=== PATIENT | female | born 1990 | race American Indian/Alaskan Native ===

== ENCOUNTER 2017-03-25 11:15 | Emergency (ER) | payer OTHER ==
[2017-03-25] MEDS ORDERED: Lidocaine 1% 20 ML MDV ONE (11:38)
[2017-03-25] MEDS ORDERED: Lidocaine 1% 20 ML MDV INJECT ONE (11:39)
--- NOTE | 2017-03-25 11:39 | EDM.PDOC ---
ED HPI GENERAL MEDICAL PROBLEM - General Chief Complaint: Laceration Stated Complaint: L INDEX FINGER CUT Time Seen by Provider: 03/25/17 11:22 - History of Present Illness INITIAL COMMENTS - FREE TEXT/NARRATIVE: HISTORY AND PHYSICAL: History of present illness: Past 26-year-old female presents with concern of a laceration of the second digit of her left hand that occurred with a knife while working. She denies up- to-date tetanus Review of systems: As per history of present illness and below otherwise all systems reviewed and negative. Past medical history: As per history of present illness and as reviewed below otherwise noncontributory. Surgical history: As per history of present illness and as reviewed below otherwise noncontributory. Social history: No reported history of drug or alcohol abuse. Family history: As per history of present illness and as reviewed below otherwise noncontributory. Physical exam: HEENT: Atraumatic, normocephalic, pupils reactive, negative for conjunctival pallor or scleral icterus, mucous membranes moist, throat clear, neck supple, nontender, trachea midline. Lungs: Clear to auscultation, breath sounds equal bilaterally, chest nontender. Heart: S1S2, regular, negative for clicks, rubs, or JVD. Abdomen: Soft, nondistended, nontender. Negative for masses or hepatosplenomegaly. Negative for costovertebral tenderness. Pelvis: Stable nontender. Genitourinary: Deferred. Rectal: Deferred. Extremities: Flap type laceration approximately 2 cm volar aspect second digit left hand Neuro: Awake, alert, oriented. Cranial nerves II through XII unremarkable. Cerebellum unremarkable. Motor and sensory unremarkable throughout. Exam nonfocal. Diagnostics: None Therapeutics: Tetanus updated patient elasticized 1% lidocaine without epinephrine irrigated with copious amount 0.9 normal saline and closed with 5-0 nylon interrupted suture bacitracin applied Impression: [#1 acute injury left hand ( laceration second digit) Definitive disposition and diagnosis as appropriate pending reevaluation and review of above. ED ROS GENERAL - Review of Systems Review Of Systems: ROS reveals no pertinent complaints other than HPI. ED EXAM, SKIN/RASH Exam: See Below (See dictation) Departure - Departure Time of Disposition: 11:38 Disposition: Home, Self-Care 01 Condition: Good Clinical Impression: Hand injury - Discharge Information Referrals: PCP,None [Primary Care Provider] - Additional Instructions: The following information is given to patients seen in the emergency department who are being discharged to home. This information is to outline your options for follow-up care. We provide all patients seen in our emergency department with a follow-up referral. The need for follow-up, as well as the timing and circumstances, are variable depending upon the specifics of your emergency department visit. If you don't have a primary care physician on staff, we will provide you with a referral. We always advise you to contact your personal physician following an emergency department visit to inform them of the circumstance of the visit and for follow-up with them and/or the need for any referrals to a consulting specialist. The emergency department will also refer you to a specialist when appropriate. This referral assures that you have the opportunity for followup care with a specialist. All of these measure are taken in an effort to provide you with optimal care, which includes your followup. Under all circumstances we always encourage you to contact your private physician who remains a resource for coordinating your care. When calling for followup care, please make the office aware that this follow-up is from your recent emergency room visit. If for any reason you are refused follow-up, please contact the [facility] emergency department at and asked to speak to the emergency department charge nurse. ERNIE [facility] [address] [place] [id number] Wound check 48 hour suture removal 10-14 days return as needed as discussed
[2017-03-25] MEDS ORDERED: Diphtheria,Pertussis(Acell),Tetanus Vaccine 0.5 ML Syringe IM ONE (11:40)
== END 2017-03-25 12:11 | disposition home or self-care (01) ==
LOC: MW.ED 11:15
DX: S61.211A Laceration without foreign body of left index finger without damage to nail, initial encounter (principal); Z23 Encounter for immunization; W26.0XXA Contact with knife, initial encounter
CPT/HCPCS: 12001; 90471; 90715; 99282; 99282-25

== ENCOUNTER 2018-11-02 08:10 | Inpatient (IN) | payer OTHER ==
[2018-11-02] MEDS ORDERED: Lidocaine 1% 50 ML MDV INJECT PRN (10:01)
[2018-11-02] MEDS ORDERED: Misoprostol 200 MCG Tab PO PRN (10:01)
[2018-11-02] MEDS ORDERED: Sodium Chloride 0.9% 10 ML SDV IV PRN (10:01)
[2018-11-02] MEDS ORDERED: Methylergonovine 0.2 MG/1 ML Amp IM PRN (10:01)
[2018-11-02] MEDS ORDERED: Butorphanol 1 MG/ML SDV IVPUSH PRN (10:01)
[2018-11-02] MEDS ORDERED: Nalbuphine 10 MG/1 ML Vial IVPUSH PRN (10:01)
[2018-11-02] MEDS ORDERED: Sodium Chloride 0.9% 2.5 ML Syringe FLUSH PRN (10:01)
[2018-11-02] MEDS ORDERED: Water For Irrigation,Sterile 1,000 ML Container IRR PRN (10:01)
[2018-11-02] MEDS ORDERED: Sodium Chloride 0.9% 10 ML Syringe FLUSH PRN (10:01)
[2018-11-02] MEDS ORDERED: Carboprost Tromethamine 250 MCG/1 ML Amp IM PRN (10:01)
[2018-11-02] MEDS ORDERED: Tranexamic Acid 1,000 MG in Sodium Chloride 0.9% 100 ML IV PRN (10:01)
[2018-11-02] MEDS ORDERED: Lactated Ringers 1,000 ML IV SCH (10:15)
[2018-11-02 10:59] LABS: BLOOD UREA NITROGEN,BUN 9 mg/dL (7.0-18.0); CARBON DIOXIDE,CO2 19.3 mmol/L (21.0-32.0); CHLORIDE,CL 105 mmol/L (98-107); GLUCOSE RANDOM 91 mg/dL (74-106); SODIUM,NA 138 mmol/L (136-145)
[2018-11-02] MEDS ORDERED: Ropivacaine HCl/PF 100 ML ONE (18:07)
[2018-11-02] MEDS ORDERED: fentaNYL 100 MCG/2 ML SDV ONE (18:07)
[2018-11-02] MEDS: Oxytocin/0.9 % Sodium Chloride 30 UNIT/500 ML BAG IV SCH ×2 (19:15→19:37)
[2018-11-02] MEDS ORDERED: Lidocaine 1% 50 ML MDV ONE (19:19)
[2018-11-02] MEDS ORDERED: Witch Hazel Medicated Pads 40/Jar TOP PRN (20:12)
[2018-11-02] MEDS ORDERED: Acetaminophen 500 MG Tab PO PRN ×2 (20:12)
[2018-11-02] MEDS ORDERED: Lanolin 100% Cream 7 GM Tube TOP PRN (20:12)
[2018-11-02] MEDS ORDERED: Bisacodyl 10 MG Supp RECTAL PRN (20:12)
[2018-11-02] MEDS ORDERED: Ibuprofen 400 MG Tab PO PRN (20:12)
[2018-11-02] MEDS ORDERED: Docusate Sodium 100 MG Cap PO PRN (20:12)
[2018-11-02] MEDS ORDERED: Benzocaine/Menthol 20%-0.5% Spray 78 GM Cannister TOP PRN (20:12)
[2018-11-02] MEDS: Ibuprofen 800 MG Tab PO PRN (20:53)
--- NOTE | 2018-11-03 03:36 | OR ---
SURGEON: Renard Gutiérrez MD DATE OF PROCEDURE: 11/02/2018 INDICATION: The patient is a 27-year-old, G1, P0 at 39 weeks 5 days, presented in spontaneous labor. The patient progressed to 10/100/+1 and pushed with contractions. PREOPERATIVE DIAGNOSES: 1. Intrauterine at 39 weeks 5 days. 2. Active 2nd stage of labor. POSTOPERATIVE DIAGNOSES: 1. Intrauterine at 39 weeks 5 days. 2. Active 2nd stage of labor. FINDINGS: Male fetus in cephalic presentation. AGPAR 8 and 9. ANESTHESIA: Local anesthesia. ESTIMATED BLOOD LOSS: 350 mL. OPERATIVE PROCEDURE: Normal spontaneous vaginal delivery. DESCRIPTION OF PROCEDURE: Patient pushed with contractions for approximately 30 minutes with descent to 10/100/+3. head delivered over intact perineum in occiput anterior position. No nuchal cord was noted. head restituted ROT. Anterior shoulder delivered easily, followed by posterior shoulder and the remaining body. The baby was crying and pink immediately after delivery and moving all extremities. Baby was placed on maternal chest. Cord was clamped and cut after 60 seconds and no longer pulsating. Cord gases were obtained. Placenta was delivered with gentle traction. Second-degree perineal laceration was noticed. Lidocaine 1% was injected for local anesthesia. 3-0 Vicryl was used to repair the 2nd- degree laceration in the usual fashion. Fundus was firm and at the umbilicus. Bleeding was minimal. The patient tolerated the procedure well, was given care instructions. COOPER / RAUL /[id number] SHANAE
--- NOTE | 2018-11-03 15:52 | PCM.PNPP ---
- General Info Date of Service: 11/03/18 Functional Status: Reports: Pain Controlled, Tolerating Diet, Ambulating, Urinating - Review of Systems General: Reports: No Symptoms HEENT: Reports: No Symptoms Pulmonary: Reports: No Symptoms Cardiovascular: Reports: No Symptoms Gastrointestinal: Reports: No Symptoms Genitourinary: Reports: No Symptoms Musculoskeletal: Reports: No Symptoms Skin: Reports: No Symptoms Neurological: Reports: No Symptoms Psychiatric: Reports: No Symptoms - General Info Date of Service: 11/03/18 - Patient Data Vital Signs - Most Recent: Last Vital Signs Temp 36.9 C 11/03/18 07:55 Pulse 97 11/03/18 07:55 Resp 17 11/03/18 07:55 BP 122/58 L 11/03/18 07:55 Pulse Ox 95 11/03/18 07:55 Weight - Most Recent: 76.657 kg Lab Results - Last 24 Hours: Laboratory Results - last 24 hr 11/03/18 Range/Units 07:40 Hgb 12.7 (12.0-16.0) g/dL Hct 36.9 (36.0-46.0) % Med Orders - Current: Current Medications Acetaminophen (Tylenol Extra Strength) 500 mg PO Q4H PRN PRN Reason: Pain Acetaminophen (Tylenol Extra Strength) 1,000 mg PO Q4H PRN PRN Reason: Pain Last Admin: 11/02/18 20:54 Dose: 1,000 mg Benzocaine/Menthol (Dermoplast Pain Relief 20%-0.5% [place]) 78 gm TOP ASDIRECTED PRN PRN Reason: Perineal Comfort Measure Last Admin: 11/02/18 20:53 Dose: 78 gm Bisacodyl (Dulcolax) 10 mg RECTAL ONETIME PRN PRN Reason: Constipation Butorphanol Tartrate (Stadol) 1 mg IVPUSH Q1H PRN PRN Reason: Pain Last Admin: 11/02/18 15:25 Dose: 1 mg Carboprost Tromethamine (Hemabate Ds) 250 mcg IM ASDIRECTED PRN PRN Reason: Post Hemorrhage Docusate Sodium (Colace) 100 mg PO BID PRN PRN Reason: Constipation Last Admin: 11/02/18 20:53 Dose: 100 mg Emollient Ointment (Lansinoh Hpa) 0 gm TOP ASDIRECTED PRN PRN Reason: Sore Nipples Last Admin: 11/02/18 20:53 Dose: 7 gm Tranexamic Acid 1,000 mg/ (Sodium Chloride) 110 mls @ 660 mls/hr IV ONETIME PRN PRN Reason: Bleeding Lactated Ringer's (Ringers, Lactated) 1,000 mls @ 150 mls/hr IV ASDIRECTED YANI Last Admin: 11/02/18 17:40 Dose: 999 mls/hr Oxytocin/Sodium Chloride (Oxytocin 30 Unit/500 Ml-Ns) 30 unit in 500 mls @ 999 mls/hr IV TITRATE [facility] Last Infusion: 11/02/18 20:08 Dose: Infused Ibuprofen (Motrin) 400 mg PO Q4H PRN PRN Reason: Pain Ibuprofen (Motrin) 800 mg PO Q6H PRN PRN Reason: Pain Last Admin: 11/02/18 20:53 Dose: 800 mg Lidocaine HCl (Xylocaine 1%) 50 ml INJECT ONETIME PRN PRN Reason: Laceration repair Methylergonovine Maleate (Methergine) 0.2 mg IM ASDIRECTED PRN PRN Reason: Post Hemorrhage Misoprostol (Cytotec) 200 mcg PO ONETIME PRN PRN Reason: Post Hemorrhage Nalbuphine HCl (Nubain) 10 mg IVPUSH Q1H PRN PRN Reason: Pain (severe 7-10) Sodium Chloride (Saline Flush) 10 ml FLUSH ASDIRECTED PRN PRN Reason: Keep Vein Open Sodium Chloride (Saline Flush) 2.5 ml FLUSH ASDIRECTED PRN PRN Reason: Keep Vein Open Sodium Chloride (Normal Saline) 10 ml IV ASDIRECTED PRN PRN Reason: IV Use Sterile Water (Sterile Water For Irrigation) 1,000 ml IRR ASDIRECTED PRN PRN Reason: delivery Last Admin: 11/02/18 19:16 Dose: 1,000 ml Witch Susi (Tucks) 1 pad TOP ASDIRECTED PRN PRN Reason: comfort care Last Admin: 11/02/18 20:52 Dose: 1 pad Discontinued Medications Fentanyl (Sublimaze) Confirm Administered Dose 100 mcg .ROUTE .STK-MED ONE Stop: 11/02/18 18:08 Last Admin: 11/03/18 10:51 Dose: Not Given Ropivacaine (Naropin 0.2%) Confirm Administered Dose 100 mls @ as directed .ROUTE .STK-MED ONE Stop: 11/02/18 18:08 Last Admin: 11/03/18 10:51 Dose: Not Given Lidocaine HCl (Xylocaine 1%) Confirm Administered Dose 50 ml .ROUTE .STK-MED ONE Stop: 11/02/18 19:20 Last Admin: 11/03/18 10:51 Dose: Not Given - Interaction Support Person: , Mother - Recovery Exam Fundal Tone: Firm Fundal Level: At Umbilicus Fundal Placement: Midline Lochia Amount: Scant Lochia Color: Rubra/Red Perineum Description: Other (see below) Other Perinuem Description: 2nd degree laceration Episiotomy/Laceration: Approximated Bladder Status: Voiding Urinary Elimination: Voided - Exam Lungs: Clear to Auscultation Cardiovascular: Regular Rate, Regular Rhythm GI/Abdominal Exam: Normal Bowel Sounds Extremities: Normal Inspection Neurological: No New Focal Deficit Psy/Mental Status: Alert - Problem List & Annotations (1) Vaginal delivery SNOMED Code(s): 429111207 Code(s): O80 - ENCOUNTER FOR FULL-TERM UNCOMPLICATED DELIVERY Status: Acute Current Visit: Yes - Problem List Review Problem List Initiated/Reviewed/Updated: Yes - Assessment Assessment:: 27yo p1 s/p PPD1 , stable ,normal lochia , - Plan Plan:: Routine Pain control as needed Ambulate Regular diet Discharge home tomorrow
[2018-11-03] MEDS: Ibuprofen 800 MG Tab PO PRN (16:32)
== END 2018-11-03 21:20 | disposition home or self-care (01) | DRG 807 ==
LOC: MW.OBCHECK 08:10 → MW.OB 08:11 → MW.OBCHECK 10:00 → MW.OB 10:01 → OBSVTOIN 20:12 → MW.OB 23:10
PROVIDERS: ADMIT Obstetrics & Gynecology; ATTEND Obstetrics & Gynecology
PROC: 10E0XZZ Delivery of Products of Conception, External Approach (ICD-10-PCS; principal; 2018-11-02)
PROC: 0KQM0ZZ Repair Perineum Muscle, Open Approach (ICD-10-PCS; 2018-11-02)
PROC: 4A1HXCZ Monitoring of Products of Conception, Cardiac Rate, External Approach (ICD-10-PCS; 2018-11-02)
DX: O76 Abnormality in fetal heart rate and rhythm complicating labor and delivery (principal); O70.1 Second degree perineal laceration during delivery; Z3A.39 39 weeks gestation of pregnancy; Z37.0 Single live birth
CPT/HCPCS: 36415; 59025; 59409; 80053; 81003; 82570; 84156; 84550; 85014; 85018; 85027; 86850; 86900; 86901; A9270-GY; J0595; J2001; J2590; J2795; J3010; J7120